=== PATIENT | male | born 1970 | race Caucasian/White ===

== ENCOUNTER 2016-05-12 19:14 | Emergency (ER) | payer OTHER ==
[~2016-05-12] VITALS: Ht 175.3 cm; Wt 77.1 kg
[~2016-05-12 19:14] MED LIST: AUGMENTIN 875-1 EACH PO; PREDNISOLO15 MG/5 M4 PO; VENTOLIN HFA18 GM INH
[2016-05-12 19:18] VITALS: BP 1634/94
--- NOTE | 2016-05-12 19:46 | RADIOLOGY REPORT ---
EXAMINATION: XR FINGER, LEFT CLINICAL INFORMATION: Left middle finger pain. Rule out fracture. COMPARISON: None TECHNIQUE: Three views of the left long finger. FINDINGS: There is mild degenerative arthritis in the first CMC joint as well as multiple interphalangeal joints, most notably the long finger PIP and DIP joints. No acute fracture or malalignment. No avulsion fractures are identified. Soft tissues are unremarkable. No radiodense foreign bodies. IMPRESSION: 1. No acute fracture or malalignment. 2. Mild multifocal degenerative arthritis.
--- NOTE | 2016-05-12 20:02 | ED HAND/WRIST INJURY COMPLAINT ---
History of Present Illness General Chief Complaint: Hand or Wrist Injury Stated Complaint: INJURY TO MIDDLE FINGER ON LEFT HAND X 3.5 HOURS Source: patient Exam Limitations: no limitations Vital Signs & Intake/Output Vital Signs & Intake/Output Vital Signs Date Time Temp Pulse Resp B/P Pulse O2 O2 Flow FiO2 Ox Delivery Rate 05/12 2010 Room Air 05/12 1917 98.9 94 18 1634/94 97 Room Air Allergies Coded Allergies: No Known Allergies (10/07/15) Reconcile Medications Albuterol Sulfate (Ventolin Hfa) 18 GM HFA.AER.AD 2 PUF INH Q4-6 PRN PRN wheeze Amoxicillin/Potassium Clav (Augmentin 875-125 Tablet) 1 EACH TABLET 1 TAB PO BID bronchitis Prednisolone 15 MG/5 ML SOLUTION 10 ML PO BID bronchitis Triage Note: PT TO ED C/O LEFT MIDDLE FINGER PAIN S/P INJURY AT WORK AT [employer] THIS AFTERNOON. WAS LIFTING A 5 GALLON PAIN AND FINGER WAS CRUSHED BETWEEN PAIN AND STEEL SHELVING. STATES CAN NOT BEND FINGER. HAS SENSATION TO TIP OF FINGER. NO BLEEDING OR OBVIOUS INJURY TO SKIN. Triage Nurses Notes Reviewed? yes HPI: Patient dropped a bucket onto his finger crushing it. 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 He applied ice to the area which helped the symptoms. No previous injuries. He has limited range of motion at the DIP joint secondary to pain and swelling Past History Travel History Traveled to [place] past 21 day No Medical History Any Pertinent Medical History? 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 No Review of Systems Review of Systems Constitutional: Reports: see HPI. EENTM: Reports: no symptoms. Respiratory: Reports: no symptoms. Cardiovascular: Reports: no symptoms. GI: Reports: no symptoms. Genitourinary: Reports: no symptoms. Musculoskeletal: Reports: see HPI. Skin: Reports: no symptoms. Neurological/Psychological: Reports: no symptoms. Hematologic/Endocrine: Reports: no symptoms. Immunologic/Allergic: Reports: no symptoms. All Other Systems: Reviewed and Negative Physical Exam Physical Exam Hand Left: swelling, tender, 3rd finger Hand Right: normal inspection, normal range of motion Comments: Well-developed well-nourished no apparent distress. HEENT: Atraumatic, extraocular motion intact Neck: Supple, no lymphadenopathy Back: Nontender Respiratory: No respiratory distress Extremities: No edema, full range of motion Neuro: Alert and oriented x3 Psych: Mood affect normal, normal memory normal judgment. Skin: Warm and dry, no rash on exposed skin Left hand third digit distal phalanx with moderate swelling to the pulp, tiny subungual hematoma noted at the midportion of the nail. There is tenderness on palpation of the distal phalanx. Range of motion of the DIP joint is limited PIP joint is normal. Neurovascularly intact Progress Differential Diagnosis: compartment syndrome, dislocation, felon, fracture, paronychia Plan of Care: X-ray show no fracture. He is placed in a splint by myself for comfort. Orthopedic follow-up recommended if no better in one week Diagnostic Imaging: Viewed by Me: Radiology Read. Discussed w/RAD: Radiology Read. Radiology Impression: PATIENT: JEROME ABRAHAM PRESENT AGE: 45 PATIENT ACCOUNT NO: [id number] : 72 LOCATION: [facility] ORDERING PHYSICIAN: TESFAYE STREETER SERVICE DATE: 05/12/16 EXAM TYPE: RAD - XRY-FINGERS, LEFT EXAMINATION: XR FINGER, LEFT CLINICAL INFORMATION: Left middle finger pain. Rule out fracture. COMPARISON: None TECHNIQUE: Three views of the left long finger. FINDINGS: There is mild degenerative arthritis in the first CMC joint as well as multiple interphalangeal joints, most notably the long finger PIP and DIP joints. No acute fracture or malalignment. No avulsion fractures are identified. Soft tissues are unremarkable. No radiodense foreign bodies. IMPRESSION: 1. No acute fracture or malalignment. 2. Mild multifocal degenerative arthritis. 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 ICE, MOTRIN AND TYLENOL FOR PAIN FOLLOW UP WITH ORTHOPEDIST IN 1 WEEK IF NO BETTER. 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
== END 2016-05-12 20:13 ==
LOC: ERH 19:14
DX: S60.032A Contusion of left middle finger without damage to nail, initial encounter (principal); W23.0XXA Caught, crushed, jammed, or pinched between moving objects, initial encounter
CPT/HCPCS: 73140-LT

== ENCOUNTER 2018-01-03 16:09 | Emergency (ER) | payer OTHER ==
[2018-01-03 16:39] VITALS: BP 155/94
--- NOTE | 2018-01-03 17:04 | RADIOLOGY REPORT ---
EXAMINATION: XR CHEST CLINICAL INFORMATION: Shortness of breath. COMPARISON: Chest x-ray 10/28/2009 TECHNIQUE: 2 views of the chest were obtained. FINDINGS: Lungs are clear. No pulmonary vascular congestion. There is no pleural effusion. The heart size is normal. The cardiac and mediastinal contours are normal. There are calcifications of the thoracic aorta. There are multilevel degenerative changes of dorsal spine. IMPRESSION: Unremarkable examination.
--- NOTE | 2018-01-03 17:22 | ED CARDIAC/CP/PALPITATIONS ---
History of Present Illness General Chief Complaint: Chest Pain Stated Complaint: SIB WALK IN FOR ?EKG ISSUES Source: patient Exam Limitations: no limitations Vital Signs & Intake/Output Vital Signs & Intake/Output Vital Signs Date Time Temp Pulse Resp B/P B/P Pulse O2 O2 Flow FiO2 Mean Ox Delivery Rate 01/03 1639 86 22 155/94 97 Allergies Coded Allergies: No Known Allergies (10/07/15) Reconcile Medications Albuterol Sulfate (Proair Hfa) 90 MCG HFA.AER.AD 2 PUF INH Q4-6 PRN PRN WHEEZING,TROUBLE BREATHING Albuterol Sulfate (Ventolin Hfa) 18 GM HFA.AER.AD 2 PUF INH Q4-6 PRN PRN wheeze Amoxicillin/Potassium Clav (Augmentin 875-125 Tablet) 1 EACH TABLET 1 TAB PO BID bronchitis Azithromycin (Zithromax) 250 MG TABLET 1 DP PO AD BRONCHITIS 2 the first day followed by 1 for days 2-5 Prednisolone 15 MG/5 ML SOLUTION 10 ML PO BID bronchitis Triage Note: PER PT STARTED WITH SOB, YESTERDAY AM, ALSO SOME CP 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 yes HPI: Patient presents for evaluation of possible EKG changes. Patient states he went to a walk-in clinic for evaluation of dyspnea wheezing and productive cough and chest pain. Patient states that yesterday he experienced chest pain consistent with "like I moved wrong". He has also been experiencing intermittent dyspnea and wheezing and a cough productive of a greenish yellow phlegm. He denies chest pain today. He denies fever but felt warm yesterday. He denies associated arm or jaw pain. He does comment on the severe fatigue particularly today. He is a one pack per day smoker and states he drinks alcohol about once a week. He denies any associated drug use. He denies history of hypertension or diabetes. Past History Travel History Traveled to [place] past 21 day No Medical History Any Pertinent Medical History? 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 No Review of Systems Review of Systems Constitutional: Reports: no symptoms. EENTM: Reports: no symptoms. Respiratory: Reports: see HPI. Cardiovascular: Reports: no symptoms. GI: Reports: no symptoms. Genitourinary: Reports: no symptoms. Musculoskeletal: Reports: no symptoms. Skin: Reports: no symptoms. Neurological/Psychological: Reports: no symptoms. Hematologic/Endocrine: Reports: no symptoms. Immunologic/Allergic: Reports: no symptoms. All Other Systems: Reviewed and Negative Physical Exam Physical Exam Cardiovascular: SEE BELOW Comments: Gen.: Well-nourished, well-developed, no acute respiratory distress. Head: Normocephalic, atraumatic. Eyes: Normal inspection bilaterally Ears: Normal inspection bilaterally Nose: Normal inspection Throat/mouth : Moist mucosa Neck: Supple, full range of motion, no goiter Heart: Regular rate and rhythm, no murmurs rubs or gallops Lungs: Faint crackles bilaterally posteriorly but otherwise normal air entry Chest: Nontender Back: Normal range of motion Abdomen: Soft, nontender, nondistended, normal bowel sounds Extremities: Normal range of motion grossly, equal radial pulses, no cyanosis clubbing or edema Neurologic: Cranial nerves grossly intact, speech is clear Skin: warm and dry Psychiatric: Calm, cooperative, no apparent delusions or hallucinations Core Measures ACS in differential dx? No CVA/TIA Diagnosis No Sepsis Present: No Sepsis Focused Exam Completed? No Progress Differential Diagnosis: AMI, CHF/pulm edema, pneumonia, unstable angina, asthma, COPD, bronchitis Plan of Care: Orders Procedure Date/time Status TROPONIN LEVEL 01/03 2050 Active EKG 01/03 2050 Active TROPONIN LEVEL 01/03 1636 Complete D-DIMER 01/03 1636 Complete COMPREHENSIVE METABOLIC PANEL 01/03 1636 Complete CBC WITHOUT DIFFERENTIAL 01/03 163 Complete EKG 01/03 1611 Active Laboratory Tests 01/03/18 1750: Anion Gap 6, Estimated GFR > 60, BUN/Creatinine Ratio 10.0, Glucose 95, Calcium 8.8, Total Bilirubin 0.3, AST 21, ALT 35, Alkaline Phosphatase 61, Troponin I < 0.01, Total Protein 6.3, Albumin 3.9, Globulin 2.4, Albumin/Globulin Ratio 1.6, D-Dimer High Sensitivty < 200, CBC w Diff NO MAN DIFF REQ, RBC 4.86, MCV 91.1, MCH 30.7, MCHC 33.7, RDW 13.3, MPV 8.1, Gran % 73.8, Lymphocytes % 16.4 L, Monocytes % 8.9, Eosinophils % 0.7, Basophils % 0.2, Absolute Granulocytes 6.7 H, Absolute Lymphocytes 1.5, Absolute Monocytes 0.8 H, Absolute Eosinophils 0.1 , Absolute Basophils 0 Diagnostic Imaging: Discussed w/RAD: Radiology Read. CXR Impression: PATIENT: TOM ABRAHAM PRESENT AGE: 47 PATIENT ACCOUNT NO: [id number] : 72 LOCATION: [facility] ORDERING PHYSICIAN: Josias STREETER SERVICE DATE: 01/03/18 EXAM TYPE: RAD - XRY-CHEST XRAY, TWO VIEWS EXAMINATION: XR CHEST CLINICAL INFORMATION: Shortness of breath. COMPARISON: Chest x-ray 10/28/2009 TECHNIQUE: 2 views of the chest were obtained. FINDINGS: Lungs are clear. No pulmonary vascular congestion. There is no pleural effusion. The heart size is normal. The cardiac and mediastinal contours are normal. There are calcifications of the thoracic aorta. There are multilevel degenerative changes of dorsal spine. IMPRESSION: Unremarkable examination. DICTATED BY: Maximus Ambriz MD DATE/TIME DICTATED:01/03/181699 IT INTERN:LUIS DATE/TIME TRANSCRIBED:01/03/181699 CONFIDENTIAL, DO NOT COPY WITHOUT APPROPRIATE AUTHORIZATION. <Electronically signed in Other Vendor System> SIGNED BY: Maximus Ambriz MD 01/03/181703 Initial ED EKG: NSR, nonspecific ST T wave chg (V2-V3) Comments: 01/03/2018 5:51:28 PM I updated Tom on his chest x-ray report. Awaiting labs. 01/03/2018 7:27:59 PM I have updated Tom on test results. I do not feel he is suffering an acute coronary syndrome. His clinical presentation I feel is consistent with acute bronchitis. I will treat him with an antibiotic and an asthma inhaler. Departure Departure Disposition: HOME OR SELF CARE Condition: Stable Clinical Impression Primary Impression: Acute bronchitis Qualifiers: Bronchitis organism: unspecified organism Qualified Code: J20.9 - Acute bronchitis, unspecified Referrals: Pola Leal DO (PCP/Family) Additional Instructions: Albuterol inhaler as needed for shortness of breath wheezing or cough. Azithromycin as prescribed for her bronchitis. Try to quit smoking. Follow-up with your primary care physician this week. Return if any concerns or sudden worsening. Thank you for choosing the [facility] for your care. It was a pleasure to serve you today. Gaston Pineda M.D. [facility] Departure Forms: Customer Survey General Discharge Information Prescriptions: Current Visit Scripts Albuterol Sulfate (Proair Hfa) 2 PUF INH Q4-6 PRN PRN WHEEZING,TROUBLE BREATHING #1 INHAL Azithromycin (Zithromax) 1 DP PO AD #6 TAB 2 the first day followed by 1 for days 2-5 Critical Care Note Critical Care Note Critical Care Time: non-applicable
[2018-01-03 18:05] LABS: ABSOLUTE BASOPHIL COUNT 0 /CUMM (0.0-0.2); ABSOLUTE EOSINOPHIL COUNT 0.1 /CUMM (0.0-0.7); ABSOLUTE GRANULOCYTE CT 6.7 /CUMM (1.4-6.5); ABSOLUTE LYMPH COUNT 1.5 /CUMM (1.2-3.4); ABSOLUTE MONOCYTE COUNT 0.8 /CUMM (0.10-0.60); BASOPHIL % 0.2 % (0.0-2.0); EOSINOPHIL % 0.7 % (0-5); GRANULOCYTE % 73.8 % (42.2-75.2); HEMATOCRIT 44.3 % (42-52); MEAN CORPUSCULAR HGB 30.7 PG (27.0-31.0); MEAN CORPUSCULAR HGB CONC 33.7 G/DL (33.0-37.0); MEAN CORPUSCULAR VOLUME 91.1 FL (80.0-94.0); MEAN PLATELET VOLUME 8.1 FL (7.4-10.4); PLATELET COUNT 221 /CUMM (130-400); RBC DISTRIBUTION WIDTH 13.3 % (11.5-14.5); RED BLOOD CELL CT 4.86 /CUMM (4.70-6.10); WHITE BLOOD CELL COUNT 9.1 /CUMM (4.8-10.8)
[2018-01-03] MEDS ORDERED: PROAIR HFA8.5 GM INH (19:30)
[2018-01-03] MEDS ORDERED: ZITHROMAX250 M2 PO (19:30)
== END 2018-01-03 19:39 ==
LOC: ERH 16:09
PROVIDERS: Physician Assistant Medical
DX: J20.9 Acute bronchitis, unspecified (principal); F17.210 Nicotine dependence, cigarettes, uncomplicated; R06.2 Wheezing; R06.00 Dyspnea, unspecified; R05 Cough; R07.9 Chest pain, unspecified
CPT/HCPCS: 71046; 93005; 93010